=== PATIENT | male | born 1985 | race Caucasian/White ===

== ENCOUNTER 2017-02-11 17:46 | Inpatient (IN) | payer OTHER ==
[2017-02-11 18:39] VITALS: BMI 26.6
[2017-02-11] MEDS ORDERED: IBUPROFEN 400 MG TABLET (FP) PO PRN (19:38)
[2017-02-11] MEDS ORDERED: chlordiazePOXIDE HCL 25 MG CAPSULE PO PRN (19:38)
[2017-02-11] MEDS ORDERED: NICOTINE POLACRILEX 2 MG GUM BC PRN (19:38)
[2017-02-11] MEDS ORDERED: MENTHOL/PHENOL 1 EACH UD MM PRN (19:38)
[2017-02-11] MEDS ORDERED: P-EPHED 60MG/TRIPROLIDI 2.5MG TABLET PO PRN (19:38)
[2017-02-11] MEDS ORDERED: LOPERAMIDE HCL 2 MG CAPSULE PO PRN (19:38)
[2017-02-11] MEDS ORDERED: MAGNESIUM HYDROX 2400MG/30ML ORAL SUSPENSION 30 ML CUP PO PRN (19:38)
[2017-02-11] MEDS ORDERED: METHADONE HCL 10 MG TABLET (FOR DETOX USE ONLY) PO ONE ×2 (19:38→23:00)
[2017-02-11] MEDS ORDERED: MAG HYDROX/AL HYDROX/SIMETH 30 ML UNIT-DOSE CUP PO PRN (19:38)
[2017-02-11] MEDS ORDERED: hydrOXYzine PAMOATE 50 MG CAPSULE (FP) PO PRN (19:38)
[2017-02-11] MEDS ORDERED: ACETAMINOPHEN 325 MG TABLET (FP) PO PRN (19:38)
[2017-02-11] MEDS ORDERED: guaiFENesin/D-METHORPHAN HB 10 ML UNIT-DOSE CUPS PO PRN (19:38)
[2017-02-11] MEDS ORDERED: chlordiazePOXIDE HCL 25 MG CAPSULE PO ONE (19:38)
[2017-02-11] MEDS ORDERED: MAGNESIUM CITRATE 300 ML BOTTLE PO PRN (19:38)
[2017-02-11] MEDS ORDERED: BACITRACIN 0.9 GM PACKET TP SCH (19:45)
--- NOTE | 2017-02-11 19:50 | HP ---
COWS - Scale Resting Pulse: 0= [place] 80 or Below Sweatin=Flushed/Facial Moisture Restless Observation: 1= Difficult to Sit Still Pupil Size: 1= Pupils >than Normal Bone or Joint Aches: 1= Mild Discomfort Runny Nose/ Eye Tearin= Runny Nose/Eyes GI Upset > 30mins: 2= Nausea/Diarrhea Tremor Observation: 2= Slight Tremor Visible Yawning Observation: 1= 1-2x During Session Anxiety or Irritability: 2=Irritable/Anxious Goose Flesh Skin: 0=Smooth Skin COWS Score: 14 CIWA Score - CIWA Score Nausea/Vomitin Muscle Tremors: 3 Anxiety: 4-Mod. Anxious/Guarded Agitation: 3 Paroxysmal Sweats: 3 Orientation: 3-Disoriented Date>2 days Tacttile Disturbances: 1-Very Mild Itch/Numbness Auditory Disturbances: 0-None Visual Disturbances: 0-None Headache: 0-None Present CIWA-Ar Total Score: 19 Admission ROS BHS - HPI Chief Complaint: withdrawal sx. Allergies/Adverse Reactions: Allergies Allergy/AdvReac Type Severity Reaction Status Date / Time No Known Allergies Allergy Verified 02/11/17 19:33 History of Present Illness: 32 y/o man with a long hx. of heroin & alcohol dependence is admitted for detox. Pt. denies previous detox,denies ever being drug free. He was at [facility] last night because he cut his wrist/forearm, he was cleared by psych to come to detox. Exam Limitations: No Limitations - Ebola screening Have you traveled outside of the country in the last 21 days: No (N) Have you had contact with anyone from an Ebola affected area: No Have you been sick,other than usual withdrawal symptoms: No Do you have a fever: No - Review of Systems Constitutional: Diaphoresis EENT: reports: Nose Congestion Respiratory: reports: No Symptoms reported Cardiac: reports: No Symptoms Reported GI: reports: Nausea, Abdominal cramping : reports: No Symptoms Reported Musculoskeletal: reports: Back Pain, Joint Pain Integumentary: reports: Sweating Neuro: reports: Tingling, Tremors Endocrine: reports: No Symptoms Reported Hematology: reports: No Symptoms Reported Psychiatric: reports: No Sypmtoms Reported Other Systems: Reviewed and Negative Patient History - Patient Medical History Hx Anemia: No Hx Asthma: No Hx Chronic Obstructive Pulmonary Disease (COPD): No Hx Cancer: No Hx Cardiac Disorders: No Hx Congestive Heart Failure: No Hx Hypertension: No Hx Hypercholesterolemia: No Hx Pacemaker: No HX Cerebrovascular Accident: No Hx Seizures: No Hx Dementia: No Hx Diabetes: No Hx Gastrointestinal Disorders: No Hx Liver Disease: Yes Hx Genitourinary Disorders: No Hx Sexually Transmitted Disorders: No Hx Renal Disease (ESRD): No Hx Thyroid Disease: No Hx Human Immunodeficiency Virus (HIV): No Hx Hepatitis C: Yes (needs treatment) Hx Depression: Yes Hx Suicide Attempt: No (cutter) Hx Bipolar Disorder: No Hx Schizophrenia: No - Patient Surgical History Past Surgical History: Yes Hx Neurologic Surgery: Yes (laminectomy) - PPD History Previous Implant?: Yes Documented Results: Negative w/o proof PPD to be Administered?: Yes - Smoking Cessation Smoking history: Current every day smoker Aproximately how many cigarettes per day: 20 Hx Chewing Tobacco Use: No Initiated information on smoking cessation: Yes 'Breaking Loose' booklet given: 02/11/17 - Substance & Tx. History Hx Alcohol Use: Yes Hx Substance Use: Yes Substance Use Type: Alcohol, Cocaine, Heroin Hx Substance Use Treatment: No - Substances Abused Alcohol Route: Oral Frequency: Daily Amount used: beer 4 of 24 oz or 1 1/3(6 pack) Age of first use: 17 Date of Last Use: 02/10/17 Cocaine Route: Injection Frequency: Daily Amount used: $20 Age of first use: 11 Date of Last Use: 02/10/17 Heroin Route: Injection Frequency: Daily Amount used: 10 bags Age of first use: 11 Date of Last Use: 02/10/17 Family Disease History - Family Disease History Family History: Denies Admission Physical Exam [facility] - Vital Signs Vital Signs: Vital Signs - 24 hr 02/11/17 18:36 Temperature 98.7 F Pulse Rate 80 Respiratory 18 Rate Blood Pressure 126/75 - Physical General Appearance: Yes: Tremorous, Irritable, Sweating, Anxious HEENTM: Yes: Nasal Congestion, Rhinorrhea Respiratory: Yes: Chest Non-Tender, Lungs Clear, Normal Breath Sounds Neck: Yes: Supple Breast: Yes: Breast Exam Deferred Cardiology: Yes: Regular Rhythm, Regular Rate, S1, S2 Abdominal: Yes: Normal Bowel Sounds, Non Tender, Flat, Soft Genitourinary: Yes: Within Normal Limits Back: Yes: Within Normal Limits Musculoskeletal: Yes: Within Normal Limits Extremities: Yes: Tremors Neurological: Yes: Fully Oriented, Alert Integumentary: Yes: Diaphoresis Lymphatic: Yes: Within Normal Limits - Diagnostic (1) Alcohol dependence with uncomplicated withdrawal Current Visit: Yes Status: Acute (2) Opioid dependence with withdrawal Current Visit: Yes Status: Acute (3) Cocaine dependence, uncomplicated Current Visit: Yes Status: Acute (4) Laceration of forearm Current Visit: Yes Status: Acute Qualifiers: Encounter type: initial encounter Comment: Both, repaired Cleared for Admission [facility] - Detox or Rehab [facility] Level of Care: Medically Managed Detox Regimen/Protocol: Methadone/Librium [facility] Breath Alcohol Content Breath Alcohol Content: 0 Urine Drug Screen - Results Drug Screen Negative: No Urine Drug Screen Results: LOLIS-Cocaine, OPI-Opiates, BZO-Benzodiazepines
[2017-02-11] MEDS: NICOTINE 21 MG/24 HOURS TOPICAL PATCH TD SCH (20:32)
[2017-02-11] MEDS ORDERED: THIAMINE HCL 100 MG TABLET (FP) PO SCH (22:00)
[2017-02-11] MEDS: chlordiazePOXIDE HCL 25 MG CAPSULE PO SCH (22:08)
[2017-02-11] MEDS: BACITRACIN 0.9 GM PACKET TP SCH (22:08)
[2017-02-11 22:54] LABS: URINE APPEARANCE TURBID; URINE BILIRUBIN NEGATIVE (NEGATIVE); URINE BLOOD NEGATIVE (NEGATIVE); URINE COLOR YELLOW; URINE GLUCOSE (UA) NEGATIVE (NEGATIVE); URINE KETONE NEGATIVE (NEGATIVE); URINE NITRITE NEGATIVE (NEGATIVE); URINE PROTEIN NEGATIVE (NEGATIVE); URINE UROBILINOGEN NEGATIVE mg/dL (0.2-1.0)
[2017-02-12] MEDS: chlordiazePOXIDE HCL 25 MG CAPSULE PO SCH ×3 (05:09→19:05)
[2017-02-12] MEDS: BACITRACIN 0.9 GM PACKET TP SCH (09:59)
[2017-02-12] MEDS: NICOTINE 21 MG/24 HOURS TOPICAL PATCH TD SCH (09:59)
[2017-02-12] MEDS ORDERED: PRENATAL VITAMINS W/ FOLIC ACID TABLET (FP) PO SCH (10:00)
[2017-02-12] MEDS ORDERED: METHADONE HCL 10 MG TABLET (FOR DETOX USE ONLY) PO SCH (10:00)
[2017-02-12 10:01] LABS: HEMATOCRIT 38.9 % (35.4-49); HEMOGLOBIN 12.8 GM/dL (11.7-16.9); MCH 26.8 pg (25.7-33.7); MCHC 32.9 g/dl (32.0-35.9); MEAN CELL VOLUME 81.4 fl (80-96); PLATELET COUNT 172 K/MM3 (134-434); RBC 4.78 M/mm3 (4.00-5.60); RDW 16.8 % (11.9-15.9)
[2017-02-12] MEDS ORDERED: ONDANSETRON *ODT* 4 MG TABLET SL PRN (10:16)
[2017-02-12 10:18] LABS: ALBUMIN 3.1 g/dl (3.4-5.0); ANION GAP 4 (8-16); BILIRUBIN,TOTAL 0.8 mg/dL (0.2-1.0); BLOOD UREA NITROGEN 12 mg/dL (7-18); CALCIUM 8.2 mg/dL (8.5-10.1); CHLORIDE 107 mmol/L (98-107); CO2 29 mmol/L (21-32); CREATININE 0.7 mg/dL (0.7-1.3); GLUCOSE,RANDOM 97 mg/dL (74-106); POTASSIUM 3.9 mmol/L (3.5-5.1); SGOT/AST 126 U/L (15-37); SGPT/ALT 266 U/L (12-78); SODIUM 140 mmol/L (136-145)
[2017-02-12 10:20] LABS: ALK PHOS 74 U/L (45-117); TOT PROT 6.5 g/dl (6.4-8.2)
[2017-02-12 10:59] LABS: URINE LEUK ESTERASE Negative (NEGATIVE)
[2017-02-12] MEDS ORDERED: FLU VACCINE QUAD 60 MCG/0.5 ML (MDV 17-18) IM ONE (12:00)
[2017-02-12] MEDS ORDERED: PNEUMOC 13-VAL CONJ-DIP CRM/PF 0.5 ML DISP.SYRIN IM ONE (12:00)
--- NOTE | 2017-02-12 12:33 | CONSULT ---
[facility] Psychiatric Consult - Data Date of interview: 02/12/17 Admission source: [facility] Identifying data: First admission to [facility] for this 32 y/o puertor[place] male seeking detox treatment on for alcohol,cocaine and heroin dependence.Patient is single without children,homeless,unemployed and reportedly deprived of any source of income. Substance Abuse History: Confirmed by patient in this session.Mr Butler admits to active use of crack,heroin,beer and occasinal exposure to marihuanna (K2) .See current [facility] report for details : Smoking history: Current every day smoker. Aproximately how many cigarettes per day: 20. Hx Chewing Tobacco Use: No. Initiated information on smoking cessation: Yes. 'Breaking Loose' booklet given: 02/11/17. - Substance & Tx. History. Hx Alcohol Use: Yes. Hx Substance Use: Yes. Substance Use Type: Alcohol, Cocaine, Heroin. Hx Substance Use Treatment: No. - Substances Abused. Alcohol. Route: Oral. Frequency: Daily. Amount used: beer 4 of 24 oz or 1 1/3(6 pack). Age of first use: 17. Date of Last Use: 02/10/17. Cocaine. Route: Injection. Frequency : Daily. Amount used: $20. Age of first use: 11. Date of Last Use: 02/10/17. Heroin. Route: Injection. Frequency: Daily. Amount used: 10 bags. Age of first use: 11. Date of Last Use: 02/10/17 Medical History: Hepatitis C and a history of laminectomy. Psychiatric History: Patient denies history of psychiatric hospitalizations.He, however,reports a distant history of treatment with risperidone " because of the voices years ago." Diagnosis not recalled.No OPD care for years as per self- report.Mr Butler admits to one suicide attempt,in 2004,during incarceration in [facility] (hanging). Physical/Sexual Abuse/Trauma History: Patient denies history of abuse. Additional Comment: Urine Drug Screen Results: LOLIS-Cocaine, OPI-Opiates, BZO- Benzodiazepines.Noted. Mental Status Exam - Mental Status Exam Alert and Oriented to: Time, Place, Person Cognitive Function: Good Patient Appearance: Unkempt, Disheveled Mood: Nervous, Anxious Affect: Mood Congruent Patient Behavior: Fatigued, Appropriate, Cooperative Speech Pattern: Clear, Appropriate (in c[place] verdean ; more comfortable using c[place] verdean in conversation) Voice Loudness: Normal Thought Process: Goal Oriented Thought Disorder: Not Present Hallucinations: Denies Suicidal Ideation: Denies Homicidal Ideation: Denies Insight/Judgement: Poor Sleep: Poorly, Difficulty falling asleep Appetite: Good Muscle strength/Tone: Normal Gait/Station: Normal Psychiatric Findings - Problem List ([place] 1, 2,3) (1) Alcohol dependence with uncomplicated withdrawal Current Visit: Yes Status: Acute (2) Opioid dependence with withdrawal Current Visit: Yes Status: Acute (3) Cocaine dependence, uncomplicated Current Visit: Yes Status: Acute (4) Nicotine dependence Current Visit: Yes Status: Acute (5) Substance induced mood disorder Current Visit: Yes Status: Acute (6) Insomnia Current Visit: Yes Status: Acute - Initial Treatment Plan Initial Treatment Plan: Psychoeducation.Detoxification.Sleep hygiene recommended.Seroquel 100 mg po hs.Side effects/benefits discussed with the patient.He agrees with this careplan.Observation.
--- NOTE | 2017-02-12 12:37 | PN ---
[facility] CIWA - CIWA Score Nausea/Vomitin Muscle Tremors: 3 Anxiety: 3 Agitation: 2 Paroxysmal Sweats: 3 Orientation: 2-Disoriented Date<2 days Tacttile Disturbances: 2-Mild Itch/Numbness/Burn Auditory Disturbances: 0-None Visual Disturbances: 2-Mild Sensitivity Headache: 0-None Present CIWA-Ar Total Score: 20 BHS COWS - Scale Resting Pulse: 1= [place] 81-100 Sweatin= Chills/Flushing Restless Observation: 1= Difficult to Sit Still Pupil Size: 0= Normal to Room Light Bone or Joint Aches: 2= Severe Diffuse Aches Runny Nose/ Eye Tearin= None GI Upset > 30mins: 2= Nausea/Diarrhea Tremor Observation of Outstretched Hands: 2= Slight Tremor Visible Yawning Observation: 1= 1-2x During Session Anxiety or Irritability: 2=Irritable/Anxious Goose Flesh Skin: 3=Piloerection COWS Score: 15 S Progress Note (SOAP) Subjective: Nausea, Anxious, Fatigue, Tremors, Interrupted Sleep, Body Aches, Sweating. Objective: PT. A & O X 2 (UNCERTAIN ABOUT DAY / DATE). PT. OBSERVED AMBULATING ON UNIT. NO ACUTE DISTRESS. 02/12/17 12:32 Vital Signs Temperature 99.1 F 02/12/17 09:42 Pulse Rate 92 H 02/12/17 09:42 Respiratory Rate 20 02/12/17 09:42 Blood Pressure 130/81 02/12/17 09:42 O2 Sat by Pulse Oximetry (%) Laboratory Tests 02/11/17 02/12/17 02/12/17 22:00 07:00 07:00 WBC 4.0 RBC 4.78 Hgb 12.8 Hct 38.9 MCV 81.4 MCH 26.8 MCHC 32.9 RDW 16.8 H Plt Count 172 MPV 9.0 Sodium 140 Potassium 3.9 Chloride 107 Carbon Dioxide 29 Anion Gap 4 L BUN 12 Creatinine 0.7 Creat Clearance w eGFR > 60 Random Glucose 97 Calcium 8.2 L Total Bilirubin 0.8 AST 126 H ALT 266 H Alkaline Phosphatase 74 Total Protein 6.5 Albumin 3.1 L Urine Color Yellow Urine Appearance Turbid Urine pH 8.0 Ur Specific [place] 1.015 Urine Protein Negative Urine Glucose (UA) Negative Urine Ketones Negative Urine Blood Negative Urine Nitrite Negative Urine Bilirubin Negative Urine Urobilinogen Negative Ur Leukocyte Esterase Negative RPR Titer 02/12/17 07:00 WBC RBC Hgb Hct MCV MCH MCHC RDW Plt Count MPV Sodium Potassium Chloride Carbon Dioxide Anion Gap BUN Creatinine Creat Clearance w eGFR Random Glucose Calcium Total Bilirubin AST ALT Alkaline Phosphatase Total Protein Albumin Urine Color Urine Appearance Urine pH Ur Specific [place] Urine Protein Urine Glucose (UA) Urine Ketones Urine Blood Urine Nitrite Urine Bilirubin Urine Urobilinogen Ur Leukocyte Esterase RPR Titer Nonreactive LABS NOTED. Assessment: 02/12/17 12:33 WITHDRAWAL SYMPTOMS. Plan: CONTINUE DETOX. INCREASE DAILY PO FLUID INTAKE. REPEAT AST / ALT ON 02/14/2017 FOR ELEVATED ADMISSION LEVELS. ADVISED PATIENT TO ATTAIN SURGICAL LEAD AT [facility] ( [place], [place] FOR FOLLOW-UP EVALUATION OF HANH AND STITCHES CURRENTLY PLACED IN BILATERAL FOREARMS AT [facility] ER RECENTLY.
--- NOTE | 2017-02-12 16:10 | EKG ---
Test Reason : Blood Pressure : / mmHG Vent. Rate : 062 BPM Atrial Rate : 062 BPM P-R Int : 130 ms QRS Dur : 086 ms QT Int : 456 ms P-R-T Axes : 083 094 084 degrees QTc Int : 462 ms NORMAL SINUS RHYTHM WITH SINUS ARRHYTHMIA INCOMPLETE RIGHT BUNDLE BRANCH BLOCK BORDERLINE ECG NO PREVIOUS ECGS AVAILABLE Confirmed by CEE TIPTON MD ([id number]) on 02/12/2017 4:10:33 PM Referred By: Confirmed By:CEE TIPTON MD
[2017-02-12 17:11] VITALS: BP 116/64; PULSE 95; TEMP 97.3
[2017-02-12] MEDS ORDERED: QUEtiapine FUMARATE 100 MG TABLET (FP) PO SCH (22:00)
[2017-02-12] MEDS ORDERED: chlordiazePOXIDE HCL 25 MG CAPSULE PO SCH (23:00)
--- NOTE | 2017-02-13 | DS ---
[facility] Detox Discharge Summary Admission Date: 02/11/17 Discharge Date: 02/12/17 - History Present History: Alcohol Dependence, Opioid Dependence Pertinent Past History: patient insists to leave the unit aggressive toward staff and security staff patient refuses face to face with the provider - Physical Exam Results Vital Signs: Vital Signs Temperature 97.3 F L 02/12/17 17:10 Pulse Rate 95 H 02/12/17 17:10 Respiratory Rate 16 02/12/17 17:10 Blood Pressure 116/64 02/12/17 17:10 O2 Sat by Pulse Oximetry (%) Pertinent Admission Physical Exam Findings: withdrawal sx Laboratory Last Values WBC 4.0 K/mm3 (4.0-10.0) 02/12/17 07:00 RBC 4.78 M/mm3 (4.00-5.60) 02/12/17 07:00 Hgb 12.8 GM/dL (11.7-16.9) 02/12/17 07:00 Hct 38.9 % (35.4-49) 02/12/17 07:00 MCV 81.4 fl (80-96) 02/12/17 07:00 MCH 26.8 pg (25.7-33.7) 02/12/17 07:00 MCHC 32.9 g/dl (32.0-35.9) 02/12/17 07:00 RDW 16.8 % (11.9-15.9) H 02/12/17 07:00 Plt Count 172 K/MM3 (134-434) 02/12/17 07:00 MPV 9.0 fl (7.5-11.1) 02/12/17 07:00 Sodium 140 mmol/L (136-145) 02/12/17 07:00 Potassium 3.9 mmol/L (3.5-5.1) 02/12/17 07:00 Chloride 107 mmol/L (98-107) 02/12/17 07:00 Carbon Dioxide 29 mmol/L (21-32) 02/12/17 07:00 Anion Gap 4 (8-16) L 02/12/17 07:00 BUN 12 mg/dL (7-18) 02/12/17 07:00 Creatinine 0.7 mg/dL (0.7-1.3) 02/12/17 07:00 Creat Clearance w eGFR > 60 (>60) 02/12/17 07:00 Random Glucose 97 mg/dL (74-106) 02/12/17 07:00 Calcium 8.2 mg/dL (8.5-10.1) L 02/12/17 07:00 Total Bilirubin 0.8 mg/dL (0.2-1.0) 02/12/17 07:00 AST 126 U/L (15-37) H 02/12/17 07:00 ALT 266 U/L (12-78) H 02/12/17 07:00 Alkaline Phosphatase 74 U/L (45-117) 02/12/17 07:00 Total Protein 6.5 g/dl (6.4-8.2) 02/12/17 07:00 Albumin 3.1 g/dl (3.4-5.0) L 02/12/17 07:00 Urine Color Yellow 02/11/17 22:00 Urine Appearance Turbid 02/11/17 22:00 Urine pH 8.0 (5.0-8.0) 02/11/17 22:00 Ur Specific [place] 1.015 (1.001-1.035) 02/11/17 22:00 Urine Protein Negative (NEGATIVE) 02/11/17 22:00 Urine Glucose (UA) Negative (NEGATIVE) 02/11/17 22:00 Urine Ketones Negative (NEGATIVE) 02/11/17 22:00 Urine Blood Negative (NEGATIVE) 02/11/17 22:00 Urine Nitrite Negative (NEGATIVE) 02/11/17 22:00 Urine Bilirubin Negative (NEGATIVE) 02/11/17 22:00 Urine Urobilinogen Negative mg/dL (0.2-1.0) 02/11/17 22:00 Ur Leukocyte Esterase Negative (NEGATIVE) 02/11/17 22:00 RPR Titer Nonreactive (NONREACTIVE) 02/12/17 07:00 lab noted - Treatment Hospital Course: Detox Protocol Followed, Responded well - Medication Discharge Medications: Ambulatory Orders NK [No Known Home Medication] 02/11/17 - AMA Did Patient Leave Against Medical Advice: Yes
[2017-02-13] MEDS ORDERED: METHADONE HCL 5 MG TABLET (FOR DETOX USE ONLY) PO SCH (10:00)
[2017-02-13] MEDS ORDERED: chlordiazePOXIDE 5 MG CAPSULE PO SCH (23:00)
[2017-02-14] MEDS ORDERED: chlordiazePOXIDE HCL 10 MG CAPSULE PO SCH (23:00)
[2017-02-15] MEDS ORDERED: METHADONE HCL 10 MG TABLET (FOR DETOX USE ONLY) PO SCH (10:00)
[2017-02-16] MEDS ORDERED: METHADONE HCL 5 MG TABLET (FOR DETOX USE ONLY) PO SCH (06:00)
== END 2017-02-12 16:56 | disposition home or self-care (01) | DRG 774 ==
LOC: YASAS 17:46 → Y3N 19:57
PROVIDERS: ADMIT Internal Medicine; ATTEND Internal Medicine
PROC: HZ2ZZZZ Detoxification Services for Substance Abuse Treatment (ICD-10-PCS; principal; 2017-02-11)
DX: F10.230 Alcohol dependence with withdrawal, uncomplicated (principal); F14.20 Cocaine dependence, uncomplicated; F19.24 Other psychoactive substance dependence with psychoactive substance-induced mood disorder; G47.00 Insomnia, unspecified; B18.2 Chronic viral hepatitis C; S51.812A Laceration without foreign body of left forearm, initial encounter; Y28.9XXA Contact with unspecified sharp object, undetermined intent, initial encounter; Y93.89 Activity, other specified; Y92.89 Other specified places as the place of occurrence of the external cause; Y99.8 Other external cause status
CPT/HCPCS: 36415; 80053; 81003; 85027; 86593; 90688; 93005; 93010; G0008

== ENCOUNTER 2017-06-12 15:33 | Inpatient (IN) | payer OTHER ==
[2017-06-12 17:09] VITALS: BMI 22.0
--- NOTE | 2017-06-12 18:49 | HP ---
COWS - Scale Resting Pulse: 1= [place] 81-100 Sweatin= Chills/Flushing Restless Observation: 1= Difficult to Sit Still Pupil Size: 0= Normal to Room Light Bone or Joint Aches: 1= Mild Discomfort Runny Nose/ Eye Tearin= Nasal Congestion GI Upset > 30mins: 2= Nausea/Diarrhea Tremor Observation: 1= Tremor [place], Not Seen Yawning Observation: 1= 1-2x During Session Anxiety or Irritability: 1=Feels Anxious/Irritable Goose Flesh Skin: 3=Piloerection COWS Score: 13 CIWA Score - CIWA Score Nausea/Vomitin Muscle Tremors: 2 Anxiety: 2 Agitation: 2 Paroxysmal Sweats: 1-Minimal Palms Moist Orientation: 0-Oriented Tacttile Disturbances: 3-Moderate Itch/Numb/Burn Auditory Disturbances: 0-None Visual Disturbances: 0-None Headache: 2-Mild CIWA-Ar Total Score: 15 Admission ROS BHS - HPI Chief Complaint: Alcohol and opioid withdrawal symptoms Allergies/Adverse Reactions: Allergies Allergy/AdvReac Type Severity Reaction Status Date / Time No Known Allergies Allergy Verified 02/11/17 19:33 History of Present Illness: Patient is 32 yo male with hx IV cocaine, alcohol, IV heroin, and nicotine dependence is here seeking detox. Reports attempted to complete detox at [facility] 5 days ago and left AMA . Reports feeling very depress and lonely because his family is in [place], reports was admitted to [facility] 3 months ago for cutting himself on his right wrist and depression. PMHX: Hep C , GERD, depression , anxiety, insomnia. Denies suicidal / homicidal ideation. Reports after completing detox plans to attend rehab. Denies any hx of seizures or overdose. Exam Limitations: No Limitations - Ebola screening Have you traveled outside of the country in the last 21 days: No Have you had contact with anyone from an Ebola affected area: No Have you been sick,other than usual withdrawal symptoms: No - Review of Systems Constitutional: Chills, Loss of Appetite, Changes in sleep, Weakness, Unintentional Wgt. Loss (20 lbs other past couple of months) EENT: reports: Nose Congestion Respiratory: reports: No Symptoms reported Cardiac: reports: No Symptoms Reported GI: reports: Constipated, Nausea, Poor Appetite, Poor Fluid Intake : reports: Burning (for a week) Musculoskeletal: reports: Back Pain Integumentary: reports: Change in Hair/Nails Neuro: reports: Headache, Numbness (both hands), Weakness Endocrine: reports: Excessive Sweating, Change in Weight Hematology: reports: Anemia Psychiatric: reports: Orientated x3, Depressed Other Systems: Reviewed and Negative Patient History - Patient Medical History Hx Anemia: No Hx Asthma: No Hx Chronic Obstructive Pulmonary Disease (COPD): No Hx Cancer: No Hx Cardiac Disorders: No Hx Congestive Heart Failure: No Hx Hypertension: No Hx Hypercholesterolemia: No Hx Pacemaker: No HX Cerebrovascular Accident: No Hx Seizures: No Hx Dementia: No Hx Diabetes: No Hx Gastrointestinal Disorders: Yes (GERD) Hx Liver Disease: Yes (Hep C ) Hx Genitourinary Disorders: No Hx Sexually Transmitted Disorders: No Hx Renal Disease (ESRD): No Hx Thyroid Disease: No Hx Human Immunodeficiency Virus (HIV): No Hx Hepatitis C: Yes (needs treatment) Hx Depression: Yes Hx Suicide Attempt: No (cutter) Hx Bipolar Disorder: No Hx Schizophrenia: No - Patient Surgical History Past Surgical History: Yes Hx Neurologic Surgery: Yes (laminectomy) Hx Cataract Extraction: No Hx Cardiac Surgery: No Hx Lung Surgery: No Hx Breast Surgery: No Hx Breast Biopsy: No Hx Abdominal Surgery: No Hx Appendectomy: No Hx Cholecystectomy: No Hx Genitourinary Surgery: No Hx Section: No Hx Orthopedic Surgery: No Hx Hysterectomy: No Other Surgical History: hx. laceration due to cutting both arms - PPD History Previous Implant?: Yes Documented Results: Negative w/o proof PPD to be Administered?: Yes - Reproductive History Patient is a Female of Child Bearing Age (11 -55 yrs old): No - Smoking Cessation Smoking history: Current every day smoker Have you smoked in the past 12 months: Yes Aproximately how many cigarettes per day: 20 Hx Chewing Tobacco Use: No Initiated information on smoking cessation: Yes 'Breaking Loose' booklet given: 06/12/17 - Substance & Tx. History Hx Alcohol Use: Yes Hx Substance Use: Yes Substance Use Type: Alcohol, Cocaine, Heroin Hx Substance Use Treatment: Yes ([facility] was admitted 5 days ago but did not complete treatment ) - Substances Abused Heroin Route: Injection Frequency: Daily Amount used: 1 bundle Age of first use: 11 Date of Last Use: 06/12/17 Alcohol Route: Oral Frequency: Daily Amount used: 4 cans beers 24 oz Age of first use: 19 Date of Last Use: 06/11/17 Cocaine Route: Injection Frequency: Daily Amount used: 3 bags ( $30) Age of first use: 11 Date of Last Use: 06/12/17 Family Disease History - Family Disease History Family Disease History: Other: Father (, homicide ), Mother (alive, and well ) Admission Physical Exam [facility] - Vital Signs Vital Signs: Vital Signs - 24 hr 06/12/17 17:07 Temperature 98.3 F Pulse Rate 87 Respiratory 18 Rate Blood Pressure 113/60 - Physical General Appearance: Yes: Disheveled, Mild Distress, Thin, Anxious HEENTM: Yes: EOMI, Hearing grossly Normal, Normal ENT Inspection, Normocephalic , Normal Voice, MONICA, Pharynx Normal, Other (chelithis) Respiratory: Yes: Chest Non-Tender, Lungs Clear, Normal Breath Sounds, No Respiratory Distress, No Accessory Muscle Use Neck: Yes: No masses,lesions,Nodules, Trachea in good position Breast: Yes: Breast Exam Deferred Cardiology: Yes: Regular Rhythm, Regular Rate Abdominal: Yes: Normal Bowel Sounds, Non Tender, Flat, Soft Genitourinary: Yes: Within Normal Limits Back: Yes: Muscle Spasm, Surgical Scar, Other (kyphosis , ambulates with cane) Musculoskeletal: Yes: Joint Stiffness, Other (unstedy gait, use cane for ambulation) Extremities: Yes: Normal Capillary Refill, Normal Inspection, Normal Range of Motion, Non-Tender Neurological: Yes: leathersmith II-XII NML intact, Fully Oriented, Alert, Motor Strength 5/5, Depressed Affect Integumentary: Yes: Warm, Moist, Track Romero (both hands and througout both lower extremites with out signs of infection in different healing stages), Other (multiple healed scars on both wrist) Lymphatic: Yes: Within Normal Limits - Diagnostic (1) IV drug user Current Visit: Yes Status: Acute (2) Hepatitis C Current Visit: Yes Status: Chronic Qualifiers: Viral hepatitis chronicity: chronic Hepatic coma status: without hepatic coma Qualified Code(s): B18.2 - Chronic viral hepatitis C Comment: untreated (3) Alcohol dependence with uncomplicated withdrawal Current Visit: Yes Status: Acute (4) Cocaine dependence, uncomplicated Current Visit: Yes Status: Acute (5) Opioid dependence with withdrawal Current Visit: Yes Status: Acute (6) Kyphosis Current Visit: Yes Status: Chronic Qualifiers: Kyphosis type: other Spinal region: unspecified Qualified Code(s): M40.299 - Other kyphosis, site unspecified (7) Use of cane as ambulatory aid Current Visit: Yes Status: Chronic (8) Depressed mood Current Visit: Yes Status: Acute (9) Dehydration Current Visit: Yes Status: Acute (10) Unintended weight loss Current Visit: Yes Status: Acute (11) Insomnia Current Visit: No Status: Acute (12) Nicotine dependence Current Visit: No Status: Acute Cleared for Admission [facility] - Detox or Rehab [facility] Level of Care: Medically Managed Detox Regimen/Protocol: Methadone/Librium S Breath Alcohol Content Breath Alcohol Content: 0 Urine Drug Screen - Results Drug Screen Negative: Yes Urine Drug Screen Results: LOLIS-Cocaine, OPI-Opiates, MET-Methamphetamine, PCP- Phencyclidine, BZO-Benzodiazepines, MTD-Methadone
[2017-06-12] MEDS ORDERED: NICOTINE POLACRILEX 2 MG GUM BC PRN (19:11)
[2017-06-12] MEDS ORDERED: chlordiazePOXIDE HCL 25 MG CAPSULE PO ONE (19:11)
[2017-06-12] MEDS ORDERED: guaiFENesin/D-METHORPHAN HB 10 ML UNIT-DOSE CUPS PO PRN (19:11)
[2017-06-12] MEDS ORDERED: METHADONE HCL 10 MG TABLET (FOR DETOX USE ONLY) PO ONE ×2 (19:11→23:00)
[2017-06-12] MEDS ORDERED: ACETAMINOPHEN 325 MG TABLET (FP) PO PRN (19:11)
[2017-06-12] MEDS ORDERED: LOPERAMIDE HCL 2 MG CAPSULE PO PRN (19:11)
[2017-06-12] MEDS ORDERED: MAGNESIUM HYDROX 2400MG/30ML ORAL SUSPENSION 30 ML CUP PO PRN (19:11)
[2017-06-12] MEDS ORDERED: MENTHOL/PHENOL 1 EACH UD MM PRN (19:11)
[2017-06-12] MEDS ORDERED: IBUPROFEN 400 MG TABLET (FP) PO PRN (19:11)
[2017-06-12] MEDS ORDERED: P-EPHED 60MG/TRIPROLIDI 2.5MG TABLET PO PRN (19:11)
[2017-06-12] MEDS ORDERED: MAG HYDROX/AL HYDROX/SIMETH 30 ML UNIT-DOSE CUP PO PRN (19:11)
[2017-06-12] MEDS ORDERED: MAGNESIUM CITRATE 300 ML BOTTLE PO PRN (19:11)
[2017-06-12] MEDS ORDERED: METHADONE HCL 10 MG TABLET (FOR DETOX USE ONLY) ONE (21:47)
[2017-06-12] MEDS ORDERED: MELATONIN 5 MG TABLETS PO PRN (22:00)
[2017-06-12] MEDS: THIAMINE HCL 100 MG TABLET (FP) PO SCH (22:08)
[2017-06-12] MEDS: chlordiazePOXIDE HCL 25 MG CAPSULE PO SCH (22:08)
[2017-06-13 05:03] LABS: URINE APPEARANCE CLEAR; URINE BILIRUBIN NEGATIVE (<2.0 mg/dL); URINE BLOOD NEGATIVE (NEGATIVE); URINE COLOR YELLOW; URINE GLUCOSE (UA) NEGATIVE (NEGATIVE); URINE KETONE NEGATIVE (NEGATIVE); URINE LEUK ESTERASE NEGATIVE (NEGATIVE); URINE NITRITE NEGATIVE (NEGATIVE); URINE PROTEIN NEGATIVE (NEGATIVE); URINE UROBILINOGEN NEGATIVE mg/dL (0.2-1.0)
[2017-06-13] MEDS: chlordiazePOXIDE HCL 25 MG CAPSULE PO SCH ×4 (06:09→22:24)
--- NOTE | 2017-06-13 09:52 | PN ---
[facility] CIWA - CIWA Score Nausea/Vomitin Muscle Tremors: 3 Anxiety: 3 Agitation: 3 Paroxysmal Sweats: 1-Minimal Palms Moist Orientation: 0-Oriented Tacttile Disturbances: 1-Very Mild Itch/Numbness Auditory Disturbances: 1-Very Mild Visual Disturbances: 0-None Headache: 2-Mild CIWA-Ar Total Score: 17 BHS COWS - Scale Resting Pulse: 0= [place] 80 or Below Sweatin= Chills/Flushing Restless Observation: 3= Extraneous Movement Pupil Size: 1= Pupils >than Normal Bone or Joint Aches: 2= Severe Diffuse Aches Runny Nose/ Eye Tearin= Runny Nose/Eyes GI Upset > 30mins: 2= Nausea/Diarrhea Tremor Observation of Outstretched Hands: 2= Slight Tremor Visible Yawning Observation: 1= 1-2x During Session Anxiety or Irritability: 2=Irritable/Anxious Goose Flesh Skin: 0=Smooth Skin COWS Score: 16 S Progress Note (SOAP) Subjective: ALERT,IRRITABLE,ANXIOUS,INTERRUPTED SLEEP,TREMOR,PAIN IN THE BODY AND BACK Objective: 06/13/17 09:51 Vital Signs Temperature 97.3 F L 06/13/17 06:22 Pulse Rate 67 06/13/17 09:06 Respiratory Rate 18 06/13/17 09:06 Blood Pressure 102/61 06/13/17 09:06 O2 Sat by Pulse Oximetry (%) EKG NSR NO CHEST PAIN,NO SOB,NO DIZZINESS Laboratory Last Values Urine Color Yellow 06/13/17 00:45 Urine Appearance Clear 06/13/17 00:45 Urine pH 6.0 (5.0-8.0) D 06/13/17 00:45 Ur Specific [place] 1.025 (1.001-1.035) 06/13/17 00:45 Urine Protein Negative (NEGATIVE) 06/13/17 00:45 Urine Glucose (UA) Negative (NEGATIVE) 06/13/17 00:45 Urine Ketones Negative (NEGATIVE) 06/13/17 00:45 Urine Blood Negative (NEGATIVE) 06/13/17 00:45 Urine Nitrite Negative (NEGATIVE) 06/13/17 00:45 Urine Bilirubin Negative (<2.0 mg/dL) 06/13/17 00:45 Urine Urobilinogen Negative mg/dL (0.2-1.0) 06/13/17 00:45 Ur Leukocyte Esterase Negative (NEGATIVE) 06/13/17 00:45 LABS PENDING Assessment: 06/13/17 09:52 WITHDRAWAL SYMPTOM Plan: CONTINUE DETOX
[2017-06-13] MEDS ORDERED: METHADONE HCL 10 MG TABLET (FOR DETOX USE ONLY) PO SCH (10:00)
[2017-06-13 10:15] LABS: HEMATOCRIT 36.2 % (35.4-49); MCH 27.4 pg (25.7-33.7); MCHC 33.1 g/dl (32.0-35.9); MEAN CELL VOLUME 82.7 fl (80-96); MEAN PLT VOLUME 8.8 fl (7.5-11.1); PLATELET COUNT 173 K/MM3 (134-434); RBC 4.38 M/mm3 (4.00-5.60); RDW 14.7 % (11.9-15.9); WHITE BLOOD COUNT 4.9 K/mm3 (4.0-10.0)
[2017-06-13] MEDS: PRENATAL VITAMINS W/ FOLIC ACID TABLET (FP) PO SCH (10:43)
[2017-06-13] MEDS: NICOTINE 14 MG/24 HOURS TOPICAL PATCH TD SCH (10:44)
[2017-06-13 10:52] LABS: CHLORIDE 108 mmol/L (98-107); POTASSIUM 4.1 mmol/L (3.5-5.1); SODIUM 138 mmol/L (136-145)
[2017-06-13 11:41] LABS: ALK PHOS 69 U/L (45-117); ANION GAP 1 (8-16); BILIRUBIN,TOTAL 0.3 mg/dL (0.2-1.0); BLOOD UREA NITROGEN 25 mg/dL (7-18); CALCIUM 8.5 mg/dL (8.5-10.1); CO2 29 mmol/L (21-32); CREATININE 0.7 mg/dL (0.7-1.3); GLUCOSE,RANDOM 80 mg/dL (74-106); SGOT/AST 33 U/L (15-37); SGPT/ALT 39 U/L (12-78)
--- NOTE | 2017-06-13 13:11 | EKG ---
Test Reason : Blood Pressure : / mmHG Vent. Rate : 082 BPM Atrial Rate : 082 BPM P-R Int : 132 ms QRS Dur : 086 ms QT Int : 392 ms P-R-T Axes : 077 090 075 degrees QTc Int : 457 ms NORMAL SINUS RHYTHM RIGHTWARD AXIS BORDERLINE ECG WHEN COMPARED WITH ECG OF 11-FEB-2017 21:37, NO SIGNIFICANT CHANGE WAS FOUND Confirmed by EVI MCKEE MD ([id number]) on 06/13/2017 1:10:30 PM Referred By: Confirmed By:EVI MCKEE MD
[2017-06-13] MEDS: chlordiazePOXIDE HCL 25 MG CAPSULE PO PRN (14:19)
[2017-06-13] MEDS: hydrOXYzine PAMOATE 50 MG CAPSULE (FP) PO PRN (14:20)
--- NOTE | 2017-06-13 14:38 | CONSULT ---
[facility] Psychiatric Consult - Data Date of interview: 06/13/17 Admission source: [facility] Identifying data: Pt. is a 32 year old single male, without kids, homeless, unemployed and receiving public financial assistance. This is one of multiple admissions for patient. Pt. admitted to detox for alcohol, cocaine and opiate dependence. Substance Abuse History: Following information confirmed with Mr. Butler: - Smoking Cessation. Smoking history: Current every day smoker. Have you smoked in the past 12 months: Yes. Aproximately how many cigarettes per day: 20. Hx Chewing Tobacco Use: No. Initiated information on smoking cessation: Yes. ' Breaking Loose' booklet given: 06/12/17. - Substance & Tx. History. Hx Alcohol Use: Yes. Hx Substance Use: Yes. Substance Use Type: Alcohol, Cocaine , Heroin. Hx Substance Use Treatment: Yes (Taylor was admitted 5 days ago but did not complete treatment ). - Substances Abused. Heroin. Route: Injection. Frequency: Daily. Amount used: 1 bundle. Age of first use: 11. Date of Last Use: 06/12/17. Alcohol. Route: Oral. Frequency: Daily. Amount used: 4 cans beers 24 oz. Age of first use: 19. Date of Last Use: 06/11. Cocaine. Route: Injection. Frequency: Daily. Amount used: 3 bags ( $ 30). Age of first use: 11. Date of Last Use: 06/12/17 Medical History: Hep C, GERD Psychiatric History: Pt. reports three psychiatric hospitalizations, most recently in 2017 at [facility]. Patient claims to have a diagnosis of bipolar disorder, borderline personality, and depression. States he has been prescribed risperdal and seroquel. Pt. with a h/o self injurious behavior via cutting. Pt reports several suicide attempts all by cutting. Most recent suicide attempt was in 2017. Pt is nonadherent to medications and outpatient treatment. Pt. currently denies suicidal and homicidal ideation. Physical/Sexual Abuse/Trauma History: Denies. Mental Status Exam - Mental Status Exam Alert and Oriented to: Time, Place, Person Cognitive Function: Good Patient Appearance: Unkempt Mood: Euthymic Affect: Normal Range Patient Behavior: Cooperative Speech Pattern: Appropriate Voice Loudness: Normal Thought Process: Goal Oriented Thought Disorder: Not Present Hallucinations: Denies Suicidal Ideation: Denies Homicidal Ideation: Denies Insight/Judgement: Poor Sleep: Poorly Appetite: Fair Muscle strength/Tone: Normal Gait/Station: Other (Walks with a cane.) Psychiatric Findings - Problem List ([place] 1, 2,3) (1) Alcohol dependence with uncomplicated withdrawal Current Visit: Yes Status: Acute (2) Cocaine dependence, uncomplicated Current Visit: Yes Status: Acute (3) Opioid dependence with withdrawal Current Visit: Yes Status: Acute (4) Insomnia Current Visit: Yes Status: Acute (5) Nicotine dependence Current Visit: Yes Status: Acute Qualifiers: Nicotine product type: cigarettes (6) Substance induced mood disorder Current Visit: Yes Status: Acute - Initial Treatment Plan Initial Treatment Plan: Psychoeducation provided. Detoxification in progress. Seroquel 50mg qhs ordered. Benefits and side effects discussed. Verbal consent given. Will continue to monitor patient.
[2017-06-13] MEDS ORDERED: QUEtiapine FUMARATE 50 MG TABLET PO SCH (22:00)
[2017-06-13] MEDS: THIAMINE HCL 100 MG TABLET (FP) PO SCH (22:24)
[2017-06-14] MEDS: chlordiazePOXIDE HCL 25 MG CAPSULE PO SCH ×2 (05:14→10:20)
--- NOTE | 2017-06-14 09:41 | PN ---
[facility] CIWA - CIWA Score Nausea/Vomitin Muscle Tremors: 3 Anxiety: 3 Agitation: 3 Paroxysmal Sweats: 1-Minimal Palms Moist Orientation: 0-Oriented Tacttile Disturbances: 1-Very Mild Itch/Numbness Auditory Disturbances: 1-Very Mild Visual Disturbances: 0-None Headache: 2-Mild CIWA-Ar Total Score: 17 BHS COWS - Scale Resting Pulse: 1= [place] 81-100 Sweatin= Chills/Flushing Restless Observation: 3= Extraneous Movement Pupil Size: 1= Pupils >than Normal Bone or Joint Aches: 2= Severe Diffuse Aches Runny Nose/ Eye Tearin= Runny Nose/Eyes GI Upset > 30mins: 3= Vomiting/Diarrhea Tremor Observation of Outstretched Hands: 2= Slight Tremor Visible Yawning Observation: 1= 1-2x During Session Anxiety or Irritability: 2=Irritable/Anxious Goose Flesh Skin: 0=Smooth Skin COWS Score: 18 [facility] Progress Note (SOAP) Subjective: ALERT,IRRITABLE,ANXIOUS,INTERRUPTED SLEEP,TREMOR,PAIN IN THE BODY AND BACK Objective: 06/14/17 09:37 Vital Signs Temperature 97.7 F 06/14/17 06:11 Pulse Rate 51 L 06/14/17 06:11 Respiratory Rate 16 06/14/17 06:11 Blood Pressure 122/72 06/14/17 06:11 O2 Sat by Pulse Oximetry (%) 06/14/17 09:37 Laboratory Last Values WBC 4.9 K/mm3 (4.0-10.0) 06/13/17 07:00 RBC 4.38 M/mm3 (4.00-5.60) 06/13/17 07:00 Hgb 12.0 GM/dL (11.7-16.9) 06/13/17 07:00 Hct 36.2 % (35.4-49) 06/13/17 07:00 MCV 82.7 fl (80-96) 06/13/17 07:00 MCH 27.4 pg (25.7-33.7) 06/13/17 07:00 MCHC 33.1 g/dl (32.0-35.9) 06/13/17 07:00 RDW 14.7 % (11.9-15.9) D 06/13/17 07:00 Plt Count 173 K/MM3 (134-434) 06/13/17 07:00 MPV 8.8 fl (7.5-11.1) 06/13/17 07:00 Sodium 138 mmol/L (136-145) 06/13/17 07:00 Potassium 4.1 mmol/L (3.5-5.1) 06/13/17 07:00 Chloride 108 mmol/L (98-107) H 06/13/17 07:00 Carbon Dioxide 29 mmol/L (21-32) 06/13/17 07:00 Anion Gap 1 (8-16) L 06/13/17 07:00 BUN 25 mg/dL (7-18) H D 06/13/17 07:00 Creatinine 0.7 mg/dL (0.7-1.3) 06/13/17 07:00 Creat Clearance w eGFR > 60 (>60) 06/13/17 07:00 Random Glucose 80 mg/dL (74-106) 06/13/17 07:00 Calcium 8.5 mg/dL (8.5-10.1) 06/13/17 07:00 Total Bilirubin 0.3 mg/dL (0.2-1.0) D 06/13/17 07:00 AST 33 U/L (15-37) D 06/13/17 07:00 ALT 39 U/L (12-78) D 06/13/17 07:00 Alkaline Phosphatase 69 U/L (45-117) 06/13/17 07:00 Total Protein 6.0 g/dl (6.4-8.2) L 06/13/17 07:00 Albumin 3.0 g/dl (3.4-5.0) L 06/13/17 07:00 Urine Color Yellow 06/13/17 00:45 Urine Appearance Clear 06/13/17 00:45 Urine pH 6.0 (5.0-8.0) D 06/13/17 00:45 Ur Specific [place] 1.025 (1.001-1.035) 06/13/17 00:45 Urine Protein Negative (NEGATIVE) 06/13/17 00:45 Urine Glucose (UA) Negative (NEGATIVE) 06/13/17 00:45 Urine Ketones Negative (NEGATIVE) 06/13/17 00:45 Urine Blood Negative (NEGATIVE) 06/13/17 00:45 Urine Nitrite Negative (NEGATIVE) 06/13/17 00:45 Urine Bilirubin Negative (<2.0 mg/dL) 06/13/17 00:45 Urine Urobilinogen Negative mg/dL (0.2-1.0) 06/13/17 00:45 Ur Leukocyte Esterase Negative (NEGATIVE) 06/13/17 00:45 Assessment: 06/14/17 09:38 WITHDRAWAL SYMPTOM Plan: CONTINUE DETOX,ENCOURAGE ORAL FLUID,BUN IS 25
[2017-06-14] MEDS ORDERED: METHADONE HCL 5 MG TABLET (FOR DETOX USE ONLY) PO SCH (10:00)
[2017-06-14] MEDS: PRENATAL VITAMINS W/ FOLIC ACID TABLET (FP) PO SCH (10:20)
[2017-06-14] MEDS: NICOTINE 14 MG/24 HOURS TOPICAL PATCH TD SCH (10:20)
[2017-06-14] MEDS: chlordiazePOXIDE HCL 25 MG CAPSULE PO PRN (12:58)
[2017-06-14] MEDS: hydrOXYzine PAMOATE 50 MG CAPSULE (FP) PO PRN (12:58)
--- NOTE | 2017-06-14 14:34 | PN ---
S Progress Note Note: PATIENT DID NOT WANT TO COMPLETE TREATMENT,SIGNED RELEASE AMA,DID NOT WANT TO WAIT
--- NOTE | 2017-06-14 14:41 | DS ---
[facility] Detox Discharge Summary Admission Date: 06/12/17 Discharge Date: 06/14/17 - History Present History: Alcohol Dependence, Cocaine Dependence, Opioid Dependence Additional Comments: PATIENT DID NOT WANT TO COMPLETE TREATMENT,SIGNED RELEASE AMA,DID NOT WANT TO WAIT Pertinent Past History: NICOTINE DEPENDENCE KYPHOSIS DEHYDRATION WEIGHT LOSS CANE FOR AMBULATORY AID - Physical Exam Results Vital Signs: Vital Signs Temperature 97.7 F 06/14/17 10:07 Pulse Rate 89 06/14/17 10:07 Respiratory Rate 2 L 06/14/17 10:07 Blood Pressure 132/76 06/14/17 10:07 O2 Sat by Pulse Oximetry (%) Pertinent Admission Physical Exam Findings: WITHDRAWAL SIGNS AND SYMPTOM Laboratory Last Values WBC 4.9 K/mm3 (4.0-10.0) 06/13/17 07:00 RBC 4.38 M/mm3 (4.00-5.60) 06/13/17 07:00 Hgb 12.0 GM/dL (11.7-16.9) 06/13/17 07:00 Hct 36.2 % (35.4-49) 06/13/17 07:00 MCV 82.7 fl (80-96) 06/13/17 07:00 MCH 27.4 pg (25.7-33.7) 06/13/17 07:00 MCHC 33.1 g/dl (32.0-35.9) 06/13/17 07:00 RDW 14.7 % (11.9-15.9) D 06/13/17 07:00 Plt Count 173 K/MM3 (134-434) 06/13/17 07:00 MPV 8.8 fl (7.5-11.1) 06/13/17 07:00 Sodium 138 mmol/L (136-145) 06/13/17 07:00 Potassium 4.1 mmol/L (3.5-5.1) 06/13/17 07:00 Chloride 108 mmol/L (98-107) H 06/13/17 07:00 Carbon Dioxide 29 mmol/L (21-32) 06/13/17 07:00 Anion Gap 1 (8-16) L 06/13/17 07:00 BUN 25 mg/dL (7-18) H D 06/13/17 07:00 Creatinine 0.7 mg/dL (0.7-1.3) 06/13/17 07:00 Creat Clearance w eGFR > 60 (>60) 06/13/17 07:00 Random Glucose 80 mg/dL (74-106) 06/13/17 07:00 Calcium 8.5 mg/dL (8.5-10.1) 06/13/17 07:00 Total Bilirubin 0.3 mg/dL (0.2-1.0) D 06/13/17 07:00 AST 33 U/L (15-37) D 06/13/17 07:00 ALT 39 U/L (12-78) D 06/13/17 07:00 Alkaline Phosphatase 69 U/L (45-117) 06/13/17 07:00 Total Protein 6.0 g/dl (6.4-8.2) L 06/13/17 07:00 Albumin 3.0 g/dl (3.4-5.0) L 06/13/17 07:00 Urine Color Yellow 06/13/17 00:45 Urine Appearance Clear 06/13/17 00:45 Urine pH 6.0 (5.0-8.0) D 06/13/17 00:45 Ur Specific [place] 1.025 (1.001-1.035) 06/13/17 00:45 Urine Protein Negative (NEGATIVE) 06/13/17 00:45 Urine Glucose (UA) Negative (NEGATIVE) 06/13/17 00:45 Urine Ketones Negative (NEGATIVE) 06/13/17 00:45 Urine Blood Negative (NEGATIVE) 06/13/17 00:45 Urine Nitrite Negative (NEGATIVE) 06/13/17 00:45 Urine Bilirubin Negative (<2.0 mg/dL) 06/13/17 00:45 Urine Urobilinogen Negative mg/dL (0.2-1.0) 06/13/17 00:45 Ur Leukocyte Esterase Negative (NEGATIVE) 06/13/17 00:45 RPR Titer Nonreactive (NONREACTIVE) 06/13/17 07:00 Vital Signs Temperature 97.7 F 06/14/17 10:07 Pulse Rate 89 06/14/17 10:07 Respiratory Rate 2 L 06/14/17 10:07 Blood Pressure 132/76 06/14/17 10:07 O2 Sat by Pulse Oximetry (%) - Medication Discharge Medications: Ambulatory Orders NK [No Known Home Medication] 02/11/17 - Diagnosis (1) Opioid dependence with withdrawal Current Visit: Yes Status: Acute (2) Alcohol dependence with uncomplicated withdrawal Current Visit: Yes Status: Acute (3) Cocaine dependence, uncomplicated Current Visit: Yes Status: Acute (4) Dehydration Current Visit: Yes Status: Acute (5) IV drug user Current Visit: Yes Status: Acute (6) Unintended weight loss Current Visit: Yes Status: Acute (7) Hepatitis C Current Visit: Yes Status: Chronic Qualifiers: Viral hepatitis chronicity: chronic Hepatic coma status: without hepatic coma Qualified Code(s): B18.2 - Chronic viral hepatitis C (8) Kyphosis Current Visit: Yes Status: Chronic Qualifiers: Kyphosis type: other Spinal region: unspecified Qualified Code(s): M40.299 - Other kyphosis, site unspecified (9) Use of cane as ambulatory aid Current Visit: Yes Status: Chronic (10) Nicotine dependence Current Visit: Yes Status: Acute Qualifiers: Nicotine product type: cigarettes (11) Substance induced mood disorder Current Visit: Yes Status: Acute - AMA Did Patient Leave Against Medical Advice: Yes
[2017-06-14 14:42] VITALS: BP 132/65; PULSE 90; TEMP 97.2
[2017-06-14] MEDS ORDERED: chlordiazePOXIDE 5 MG CAPSULE PO SCH (23:00)
[2017-06-15] MEDS ORDERED: chlordiazePOXIDE HCL 10 MG CAPSULE PO SCH (23:00)
[2017-06-16] MEDS ORDERED: METHADONE HCL 10 MG TABLET (FOR DETOX USE ONLY) PO SCH (10:00)
[2017-06-17] MEDS ORDERED: METHADONE HCL 5 MG TABLET (FOR DETOX USE ONLY) PO SCH (06:00)
== END 2017-06-14 13:55 | disposition left against medical advice (07) | DRG 770 ==
LOC: YASAS 15:33 → Y6N 19:30
PROVIDERS: ADMIT Internal Medicine; ATTEND Internal Medicine
PROC: HZ2ZZZZ Detoxification Services for Substance Abuse Treatment (ICD-10-PCS; principal; 2017-06-12)
DX: F11.23 Opioid dependence with withdrawal (principal); F10.230 Alcohol dependence with withdrawal, uncomplicated; F14.20 Cocaine dependence, uncomplicated; F17.213 Nicotine dependence, cigarettes, with withdrawal; F19.24 Other psychoactive substance dependence with psychoactive substance-induced mood disorder; G47.00 Insomnia, unspecified; E86.0 Dehydration; R63.4 Abnormal weight loss; Z68.22 Body mass index [BMI] 22.0-22.9, adult; R26.89 Other abnormalities of gait and mobility; Z99.89 Dependence on other enabling machines and devices; M40.209 Unspecified kyphosis, site unspecified; B18.2 Chronic viral hepatitis C; K21.9 Gastro-esophageal reflux disease without esophagitis; Z91.5 Personal history of self-harm
CPT/HCPCS: 36415; 80053; 81003; 85027; 86593; 93005; 93010